=== PATIENT | female | born 1995 | race Two or more races ===

== ENCOUNTER 2020-12-04 22:02 | Emergency (ER) | payer MEDICAID ==
[~2020-12-04] VITALS: Ht 167.6 cm; Wt 62.7 kg
--- NOTE | 2020-12-04 22:36 | NUR ---
[employer]OL [employer]: PT. TO ROOM FROM LOBBY AT THIS TIME.
--- NOTE | 2020-12-04 22:48 | NUR ---
PT BIB [place] VIA POV. PER PT RLQ ABD PAIN ONSET YESTERDAY. ALSO VAGINAL PAIN & RECTAL PAIN. IRREGULAR MENSES, "I'VE BEEN BLEEDING FOR THE LAST TWO WEEKS". 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 PT RESTING IN RALBION, MONITORING IN PLACE, PT TEARFUL STATES PAIN IS 8/10, [place] AT BEDSIDE, WCTM.
[2020-12-04] MEDS ORDERED: KETOROLAC 30 MG/1 ML IVPush ONE (23:00)
[2020-12-04] MEDS ORDERED: KETOROLAC 30 MG/1 ML ONE (23:14)
--- NOTE | 2020-12-04 23:23 | NUR ---
[facility]) - [phone]
[2020-12-04 23:28] LABS: BASOPHILS % (AUTO) 1 % (0-1); EOSINOPHILS % (AUTO) 1 % (1-7); LYMPHOCYTES % (AUTO) 19 % (22-44); MD NO; MEAN CORPUSCULAR HEMOGLOBIN 30.7 pg (27.0-34.8); MEAN CORPUSCULAR HGB CONC 33.4 g/dL (32.4-35.8); MEAN PLATELET VOLUME 7.6 fL (7.4-10.4); MONOCYTES % (AUTO) 5 % (2-9); NEUTROPHILS % (AUTO) 74 % (42-75); PLATELET COUNT 251 x10^3/uL (130-400); RED BLOOD COUNT 3.78 x10^6/uL (3.82-5.3); RED CELL DISTRIBUTION WIDTH 13.3 % (9.6-15.2)
[2020-12-04 23:38] LABS: ANION GAP 7 mmol/L (5-15); CALCIUM 8.4 mg/dL (8.5-10.1); CHLORIDE 107 mmol/L (98-107); CREATININE 0.81 mg/dL (0.55-1.02)
[2020-12-04 23:39] LABS: ALANINE AMINOTRANSFERASE 19 U/L (12-78); ALBUMIN 3.4 g/dL (3.4-5.0)
[2020-12-04 23:43] LABS: ALKALINE PHOSPHATASE 68 U/L (45-117); BILIRUBIN,TOTAL 0.2 mg/dL (0.2-1.0); TOTAL PROTEIN 7.4 g/dL (6.4-8.2)
[2020-12-04 23:54] LABS: MICROSCOPIC INDICATED
[2020-12-05 00:23] VITALS: BP 135/74
[2020-12-05] MEDS ORDERED: DICYCLOMINE 20 MG TABLET ONE (01:07)
[2020-12-05] MEDS ORDERED: DICYCLOMINE 20 MG TABLET PO ONE (01:30)
== END 2020-12-05 01:18 | disposition home or self-care (01) ==
LOC: ED 12-05 01:12
DX: N93.8 Other specified abnormal uterine and vaginal bleeding (principal); R10.2 Pelvic and perineal pain; J45.909 Unspecified asthma, uncomplicated
CPT/HCPCS: 36415; 76830; 80053; 81001; 84703; 85025; 87086; 96374; 99284; J1885